=== PATIENT | female | born 1990 | race African-American/Black ===

== ENCOUNTER 2023-10-13 11:17 | Inpatient (IN) | payer MEDICAID ==
[~2023-10-13] VITALS: Ht 167.6 cm; Wt 65.8 kg
[~2023-10-13 11:17] MED LIST: NO CURRENT MEDICATIO; NOCURR
[2023-10-13 12:11] LABS: GLUCOMETER DEV NAME(LOC) POC.BV; POC SARS-COV2 AG, FIA NEGATIVE (NEGATIVE)
[2023-10-13] MEDS ORDERED: INFLUENZA VIRUS VACCINE QVS 2023-24 (6MO+)/PF 60 MCG/0.5 ML SYRINGE IM. ONE (14:15)
[2023-10-13] MEDS ORDERED: ZOLPIDEM TARTRATE 10 MG TABLET PO PRN (15:00)
[2023-10-13 15:22] VITALS: BP 123/80; PULSE 71; RESP 17; TEMP 96.8; O2SAT 100
[2023-10-13] MEDS: LORazepam 2 MG TABLET PO PRN (15:26)
[2023-10-13] MEDS: HALOPERIDOL 5 MG TABLET PO PRN (15:26)
[2023-10-13 20:03] VITALS: BP 124/74; PULSE 84; RESP 16; TEMP 97.8; O2SAT 96
[2023-10-14] MEDS: LORazepam 2 MG TABLET PO PRN ×2 (06:46→12:50)
[2023-10-14 07:59] LABS: BASOPHILS % (AUTO) 0.6 % (0.0-2.0); EOSINOPHILS % (AUTO) 0.8 % (1.0-6.0); HEMATOCRIT 41.8 % (36-46); HEMOGLOBIN 14.3 g/dL (12.0-16.0); LYMPHOCYTES # (AUTO) 2.1 K/uL (1.0-4.8); LYMPHOCYTES % (AUTO) 29.2 % (22.0-44.0); MEAN CORPUSCULAR HEMOGLOBIN 30.3 pg (26.0-34.0); MEAN CORPUSCULAR HGB CONC 34.2 G/dL (31.0-37.0); MEAN CORPUSCULAR VOLUME 89 fL (80-100); MONOCYTES # (AUTO) 0.7 K/uL (0.1-1.0); MONOCYTES % (AUTO) 10.3 % (2.0-9.0); NEUTROPHILS # (AUTO) 4.3 K/uL (1.8-7.7); NEUTROPHILS % (AUTO) 59.1 % (40.0-70.0); PLATELET COUNT (AUTO) 358 K/uL (150-450); RED BLOOD CELL COUNT(AUTO) 4.71 MIL/uL (4.00-5.20); RED CELL DISTRIBUTION WIDTH 15.8 % (11.5-14.5); WHITE BLOOD COUNT (AUTO) 7.3 K/uL (4.5-11.0)
[2023-10-14 08:00] VITALS: BP 132/90; PULSE 84; RESP 17; TEMP 97.2; O2SAT 98
[2023-10-14 08:05] LABS: HEMOGLOBIN A1C 5.6 % (3.8-5.6)
[2023-10-14 08:24] LABS: ALANINE AMINOTRANSFERASE 31 U/L (12-78); ALKALINE PHOSPHATASE 64 U/L (46-116); ANION GAP 10 mmol/L (8-16); ASPARTATE AMINOTRANSFERASE 22 U/L (15-37); BILIRUBIN,TOTAL 0.5 mg/dL (0.1-1.0); CALCIUM, TOTAL 8.9 mg/dL (8.8-10.5); CARBON DIOXIDE 25 mmol/L (22-29); CHLORIDE 104 mmol/L (98-107); CHOL/HDL RATIO 2.3 (3.9-5.7); CHOLESTEROL 173 mg/dL (131-200); CREATININE 0.72 mg/dL (0.60-1.30); FREE T4 (FREE THYROXINE) 0.78 ng/dL (0.76-1.46); GLOMERULAR FILTR. RATE CALC > 60 mL/min (>60); GLUCOSE,RANDOM 88 mg/dL (70-110); HCG,QUANTITATIVE < 1 mIU/mL (0-6); HDL CHOLESTEROL 76 mg/dL (40-60); LDL CHOL (CALC.) 94 mg/dL (0-130); SODIUM SERUM 139 mmol/L (136-145); THYROID STIMULATING HORMONE 0.43 uIU/mL (0.36-3.74); TOTAL PROTEIN, SERUM 8.3 g/dL (6.4-8.2); TRIGLYCERIDES 16 mg/dL (15-150); UREA NITROGEN, BLOOD 11 mg/dL (7-18)
[2023-10-14] MEDS: HALOPERIDOL 5 MG TABLET PO PRN (09:51)
[2023-10-14] MEDS ORDERED: CloNIDine HCL 0.1 MG TABLET PO PRN (14:15)
[2023-10-14] MEDS ORDERED: ONDANSETRON HCL 4 MG TABLET PO PRN (14:15)
[2023-10-14] MEDS ORDERED: GuaiFENesin/D-METHORPHAN [SUGAR-FREE] 200-20MG/10 ML SYRUP UDCUP PO PRN (14:15)
[2023-10-14] MEDS ORDERED: PETROLATUM,WHITE 28 GM JELLY TP PRN (14:15)
[2023-10-14] MEDS ORDERED: MAGNESIUM HYDROXIDE SUSPENSION 30 ML UDCUP PO PRN (14:15)
[2023-10-14] MEDS ORDERED: ACETAMINOPHEN 325 MG TABLET PO PRN (14:15)
[2023-10-14] MEDS ORDERED: NICOTINE 14 MG/24 HOUR PATCH TD PRN (14:15)
[2023-10-14] MEDS ORDERED: IBUPROFEN 400 MG TABLET PO PRN (14:15)
[2023-10-14] MEDS ORDERED: LOPERAMIDE HCL 2 MG CAPSULE PO PRN (14:15)
[2023-10-14] MEDS ORDERED: DOCUSATE SODIUM 100 MG CAPSULE PO PRN (14:15)
[2023-10-14] MEDS ORDERED: MAG HYDROX/ALUMINUM HYD/SIMETH ES 30 ML SUSPENSION UDCUP PO PRN (14:15)
[2023-10-14] MEDS ORDERED: ALBUTEROL SULFATE HFA 90 MCG/PUFF 8 GM INHALER IH PRN (14:15)
[2023-10-14] MEDS: QUEtiapine FUMARATE 300 MG TABLET PO SCH (20:01)
[2023-10-14 21:24] VITALS: BP 119/80; PULSE 70; RESP 17; TEMP 97.1; O2SAT 98
[2023-10-15] MEDS: LORazepam 2 MG TABLET PO PRN ×2 (07:44→16:12)
[2023-10-15] MEDS: HALOPERIDOL 5 MG TABLET PO PRN ×2 (07:46→16:12)
[2023-10-15 07:54] LABS: HEMOGLOBIN A1C 5.6 % (3.8-5.6)
[2023-10-15 08:00] VITALS: BP 125/90; PULSE 90; RESP 16; TEMP 97.3; O2SAT 100
[2023-10-15 08:12] LABS: CHOL/HDL RATIO 2.4 (3.9-5.7); THYROID STIMULATING HORMONE 0.46 uIU/mL (0.36-3.74)
[2023-10-15] MEDS: QUEtiapine FUMARATE 300 MG TABLET PO SCH (20:15)
[2023-10-15 20:55] VITALS: BP 138/83; PULSE 100; RESP 18; TEMP 97.5; O2SAT 96
[2023-10-16 08:04] VITALS: BP 140/79; PULSE 97; RESP 16; TEMP 97.9; O2SAT 99
[2023-10-16] MEDS: HALOPERIDOL 5 MG TABLET PO PRN (09:09)
[2023-10-16] MEDS: LORazepam 2 MG TABLET PO PRN (09:09)
[2023-10-16] MEDS: QUEtiapine FUMARATE 300 MG TABLET PO SCH (19:55)
[2023-10-16 20:05] VITALS: BP 124/85; PULSE 96; RESP 17; TEMP 98.7; O2SAT 97
[2023-10-17 07:03] VITALS: BP 136/100; PULSE 89; RESP 18; TEMP 96.6; O2SAT 99
[2023-10-17] MEDS: HALOPERIDOL 5 MG TABLET PO PRN (07:04)
[2023-10-17] MEDS: LORazepam 2 MG TABLET PO PRN (07:04)
[2023-10-17 08:13] VITALS: BP 130/97; PULSE 96; RESP 17; TEMP 97.5; O2SAT 100
[2023-10-17] MEDS ORDERED: QUET300T19 PO (09:28)
== END 2023-10-17 12:35 | disposition home or self-care (01) | DRG 750 ==
LOC: B2S 11:47
PROVIDERS: ADMIT Psychiatry & Neurology Psychiatry; ATTEND Psychiatry & Neurology Psychiatry
PROC: GZHZZZZ Group Psychotherapy (ICD-10-PCS; principal; 2023-10-15)
DX: F25.1 Schizoaffective disorder, depressive type (principal); F41.9 Anxiety disorder, unspecified; Z20.822 Contact with and (suspected) exposure to COVID-19; G47.00 Insomnia, unspecified; Z79.899 Other long term (current) drug therapy; Z91.51 Personal history of suicidal behavior
CPT/HCPCS: 80053; 80061; 83036; 84439; 84443; 84702; 84703; 85025

== ENCOUNTER 2023-10-18 16:04 | Inpatient (IN) | payer MEDICAID ==
[~2023-10-18] VITALS: Ht 167.6 cm; Wt 67.5 kg
[~2023-10-18 16:04] MED LIST changes: -NO CURRENT MEDICATIO; -NOCURR; +QUET300T19 PO
[2023-10-18 17:16] LABS: GLUCOMETER DEV NAME(LOC) POC.BV; POC SARS-COV2 AG, FIA NEGATIVE (NEGATIVE)
[2023-10-18 17:50] VITALS: BP 132/99; PULSE 90; RESP 18; TEMP 98; O2SAT 100
[2023-10-18] MEDS ORDERED: INFLUENZA VIRUS VACCINE QVS 2023-24 (6MO+)/PF 60 MCG/0.5 ML SYRINGE IM. ONE (18:15)
[2023-10-18] MEDS: LORazepam 2 MG TABLET PO PRN (18:19)
[2023-10-18] MEDS: HALOPERIDOL 5 MG TABLET PO PRN (18:19)
[2023-10-18 18:30] VITALS: BP 137/88; PULSE 88; RESP 18; TEMP 98; O2SAT 100
[2023-10-18 21:30] VITALS: BP 122/71; PULSE 74; RESP 18; TEMP 97.9; O2SAT 99
[2023-10-19] MEDS: ZOLPIDEM TARTRATE 10 MG TABLET PO PRN (01:20)
[2023-10-19] MEDS ORDERED: CloNIDine HCL 0.1 MG TABLET PO PRN (06:15)
[2023-10-19] MEDS ORDERED: MAG HYDROX/ALUMINUM HYD/SIMETH ES 30 ML SUSPENSION UDCUP PO PRN (06:15)
[2023-10-19] MEDS ORDERED: LOPERAMIDE HCL 2 MG CAPSULE PO PRN (06:15)
[2023-10-19] MEDS ORDERED: MAGNESIUM HYDROXIDE SUSPENSION 30 ML UDCUP PO PRN (06:15)
[2023-10-19] MEDS ORDERED: ONDANSETRON HCL 4 MG TABLET PO PRN (06:15)
[2023-10-19] MEDS ORDERED: GuaiFENesin/D-METHORPHAN [SUGAR-FREE] 200-20MG/10 ML SYRUP UDCUP PO PRN (06:15)
[2023-10-19] MEDS ORDERED: PETROLATUM,WHITE 28 GM JELLY TP PRN (06:15)
[2023-10-19] MEDS ORDERED: ACETAMINOPHEN 325 MG TABLET PO PRN (06:15)
[2023-10-19] MEDS ORDERED: IBUPROFEN 400 MG TABLET PO PRN (06:15)
[2023-10-19] MEDS ORDERED: ALBUTEROL SULFATE HFA 90 MCG/PUFF 8 GM INHALER IH PRN (06:15)
[2023-10-19] MEDS: HALOPERIDOL 5 MG TABLET PO PRN ×2 (06:16→11:09)
[2023-10-19] MEDS: DOCUSATE SODIUM 100 MG CAPSULE PO PRN (06:16)
[2023-10-19] MEDS: LORazepam 2 MG TABLET PO PRN ×2 (06:16→11:09)
[2023-10-19 08:22] VITALS: BP 131/95; PULSE 96; RESP 19; TEMP 98.2; O2SAT 100
[2023-10-19 08:56] LABS: BASOPHILS % (AUTO) 1.3 % (0.0-2.0); EOSINOPHILS % (AUTO) 0.9 % (1.0-6.0); HEMATOCRIT 42.7 % (36-46); HEMOGLOBIN 14.3 g/dL (12.0-16.0); LYMPHOCYTES # (AUTO) 1.8 K/uL (1.0-4.8); LYMPHOCYTES % (AUTO) 27.9 % (22.0-44.0); MEAN CORPUSCULAR HEMOGLOBIN 29.6 pg (26.0-34.0); MEAN CORPUSCULAR HGB CONC 33.5 G/dL (31.0-37.0); MEAN CORPUSCULAR VOLUME 88 fL (80-100); MONOCYTES # (AUTO) 0.6 K/uL (0.1-1.0); MONOCYTES % (AUTO) 9.2 % (2.0-9.0); NEUTROPHILS # (AUTO) 3.9 K/uL (1.8-7.7); NEUTROPHILS % (AUTO) 60.7 % (40.0-70.0); PLATELET COUNT (AUTO) 379 K/uL (150-450); RED BLOOD CELL COUNT(AUTO) 4.83 MIL/uL (4.00-5.20); RED CELL DISTRIBUTION WIDTH 15.5 % (11.5-14.5); WHITE BLOOD COUNT (AUTO) 6.4 K/uL (4.5-11.0)
[2023-10-19 09:10] LABS: HEMOGLOBIN A1C 5.6 % (3.8-5.6)
[2023-10-19 09:26] LABS: ALANINE AMINOTRANSFERASE 24 U/L (12-78); ALBUMIN 3.9 g/dL (3.4-5.0); ALKALINE PHOSPHATASE 63 U/L (46-116); ANION GAP 10 mmol/L (8-16); ASPARTATE AMINOTRANSFERASE 20 U/L (15-37); BILIRUBIN,TOTAL 0.5 mg/dL (0.1-1.0); CALCIUM, TOTAL 9.1 mg/dL (8.8-10.5); CARBON DIOXIDE 27 mmol/L (22-29); CHLORIDE 102 mmol/L (98-107); CHOL/HDL RATIO 2.3 (3.9-5.7); CHOLESTEROL 155 mg/dL (131-200); CREATININE 0.64 mg/dL (0.60-1.30); GLOMERULAR FILTR. RATE CALC > 60 mL/min (>60); GLUCOSE,RANDOM 90 mg/dL (70-110); HCG,QUANTITATIVE < 1 mIU/mL (0-6); HDL CHOLESTEROL 67 mg/dL (40-60); LDL CHOL (CALC.) 82 mg/dL (0-130); POTASSIUM 4.1 mmol/L (3.5-5.1); SODIUM SERUM 139 mmol/L (136-145); TOTAL PROTEIN, SERUM 7.6 g/dL (6.4-8.2); TRIGLYCERIDES 29 mg/dL (15-150); UREA NITROGEN, BLOOD 9 mg/dL (7-18)
[2023-10-19] MEDS ORDERED: DiphenhydrAMINE HCL 50 MG/ML VIAL ONE (15:19)
[2023-10-19] MEDS ORDERED: DiphenhydrAMINE HCL 50 MG/ML VIAL IM ONE (15:30)
[2023-10-19 20:08] VITALS: BP 110/74; PULSE 71; RESP 16; TEMP 97.3
[2023-10-19] MEDS: QUEtiapine FUMARATE 300 MG TABLET PO SCH (20:36)
[2023-10-20 08:29] VITALS: BP 112/74; PULSE 100; RESP 17; TEMP 97.7; O2SAT 96
[2023-10-20] MEDS: LORazepam 2 MG TABLET PO PRN (10:08)
[2023-10-20] MEDS: HALOPERIDOL 5 MG TABLET PO PRN (10:14)
[2023-10-20] MEDS ORDERED: DiphenhydrAMINE HCL 50 MG/ML VIAL ONE (10:54)
[2023-10-20] MEDS ORDERED: DiphenhydrAMINE HCL 50 MG/ML VIAL IM ONE (11:00)
[2023-10-20] MEDS: ESCITALOPRAM OXALATE 10 MG TABLET PO SCH (11:24)
[2023-10-20] MEDS: QUEtiapine FUMARATE 100 MG TABLET PO PRN (16:10)
[2023-10-20 20:16] VITALS: BP 114/70; PULSE 75; RESP 16; TEMP 97.8; O2SAT 98
[2023-10-20] MEDS: QUEtiapine FUMARATE 300 MG TABLET PO SCH (20:33)
[2023-10-21 09:03] VITALS: BP 125/95; PULSE 100; RESP 17; TEMP 97.6; O2SAT 99
[2023-10-21] MEDS: QUEtiapine FUMARATE 100 MG TABLET PO PRN ×2 (09:26→16:21)
[2023-10-21] MEDS: ESCITALOPRAM OXALATE 10 MG TABLET PO SCH (09:26)
[2023-10-21] MEDS: DiphenhydrAMINE HCL 25 MG CAPSULE PO PRN ×2 (11:52→16:21)
[2023-10-21] MEDS: DOCUSATE SODIUM 100 MG CAPSULE PO PRN (11:52)
[2023-10-21 21:41] VITALS: BP 126/83; PULSE 87; RESP 17; TEMP 97.1; O2SAT 98
[2023-10-21] MEDS: ZOLPIDEM TARTRATE 10 MG TABLET PO PRN (21:41)
[2023-10-21] MEDS: LORazepam 2 MG TABLET PO PRN (21:41)
[2023-10-21] MEDS: QUEtiapine FUMARATE 300 MG TABLET PO SCH (21:41)
[2023-10-22 08:26] VITALS: BP 135/88; PULSE 127; RESP 18; TEMP 97.9; O2SAT 97
[2023-10-22] MEDS ORDERED: HydrOXYzine PAMOATE 50 MG CAPSULE PO PRN (08:30)
[2023-10-22] MEDS: ESCITALOPRAM OXALATE 10 MG TABLET PO SCH (09:10)
[2023-10-22] MEDS: QUEtiapine FUMARATE 100 MG TABLET PO PRN (09:16)
[2023-10-22] MEDS: DOCUSATE SODIUM 100 MG CAPSULE PO PRN (10:35)
[2023-10-22] MEDS ORDERED: HYDR50CA7 PO (11:17)
[2023-10-22] MEDS ORDERED: ESCI-8 PO (11:17)
[2023-10-22] MEDS ORDERED: QUET100T34 PO (11:17)
[2023-10-22] MEDS ORDERED: DIPH25CA85 PO (11:17)
[2023-10-22] MEDS ORDERED: QUET300T19 PO (11:17)
== END 2023-10-22 13:47 | disposition home or self-care (01) | DRG 750 ==
LOC: B2S 17:25
PROVIDERS: ADMIT Psychiatry & Neurology Psychiatry; ATTEND Psychiatry & Neurology Psychiatry
PROC: GZHZZZZ Group Psychotherapy (ICD-10-PCS; principal; 2023-10-19)
DX: F25.1 Schizoaffective disorder, depressive type (principal); R45.851 Suicidal ideations; E05.80 Other thyrotoxicosis without thyrotoxic crisis or storm; F41.9 Anxiety disorder, unspecified; G47.00 Insomnia, unspecified; Z79.899 Other long term (current) drug therapy; Z91.51 Personal history of suicidal behavior; Z59.00 Homelessness unspecified; Z20.822 Contact with and (suspected) exposure to COVID-19
CPT/HCPCS: 80053; 80061; 83036; 84439; 84443; 84702; 85025; J1200